=== PATIENT | female | born 1995 ===

== ENCOUNTER 2020-09-05 09:43 | Outpatient (CLI) | payer OTHER | END 2020-09-05 09:53 | disposition home or self-care (01) | LOC: RAD 09:43 | PROVIDERS: ATTEND Internal Medicine | DX: J01.80 Other acute sinusitis (principal); G62.89 Other specified polyneuropathies; M54.5 Low back pain; E03.8 Other specified hypothyroidism; I10 Essential (primary) hypertension; E78.89 Other lipoprotein metabolism disorders; E11.51 Type 2 diabetes mellitus with diabetic peripheral angiopathy without gangrene; Z01.810 Encounter for preprocedural cardiovascular examination ==

== ENCOUNTER 2023-09-02 19:31 | Emergency (ER) | payer OTHER ==
[~2023-09-02] VITALS: Ht 167.6 cm; Wt 59.0 kg
[2023-09-02 23:10] LABS: HEMATOCRIT 39.6 % (36.0-45.00); HEMOGLOBIN 13.1 g/dL (12.0-15.00); MEAN CELL VOLUME 89.6 fL (80.00-100.00); MEAN CORPUSCULAR HEMOGLOBIN 29.6 pg (27.00-32.0); MEAN CORPUSCULAR HGB CONC 33.1 g/dl (32.0-36.0); PLATELET COUNT 228 K/uL (150-450); RED BLOOD COUNT 4.42 M/uL (4.00-6.00); RED CELL DISTRIBUTION WIDTH 12.7 % (11.5-14.5)
[2023-09-02 23:13] LABS: URINE APPEARANCE Clear; URINE BILIRRUBIN Negative (NEGATIVE); URINE BLOOD Negative; URINE COLOR Yellow; URINE GLUCOSE Negative (NEGATIVE); URINE LEUKOCYTE Trace; URINE NITRATE Negative; URINE PROTEIN Negative (NEGATIVE); URINE UROBILINOGEN 0.2 E.U./dl
[2023-09-02 23:17] LABS: URINE BACTERIA 351.5 uL (0.0-1933); URINE EPITHELIAL CELLS 10.6 uL (0.0-38.8); URINE RBC 7.6 uL (0.0-20.8); URINE WBC 9.7 uL (0.0-23.2)
[2023-09-02 23:25] LABS: CALCIUM 9.1 mg/dL (8.5-10.1); CREATININE SERUM 0.72 mg/dL (0.55-1.02); GFR 97.91; POTASSIUM 3.6 mEq/L (3.5-5.1)
== END 2023-09-03 00:07 ==
LOC: ER 19:31
PROVIDERS: Nurse Practitioner Family
DX: R11.0 Nausea (principal); E16.2 Hypoglycemia, unspecified; Z20.822 Contact with and (suspected) exposure to COVID-19